=== PATIENT | female | born 1995 | race Caucasian/White ===

== ENCOUNTER 2016-10-02 06:48 | Inpatient (IN) | payer BC ==
--- NOTE | 2016-10-02 07:18 | ED ---
Psychiatric Complaint - HPI Summary HPI Summary: 21 female presents accompanied by police after telling her roommate that she was having thoughts of suicide. Patient states she was driving back to her home , 4 hour away, to kill herself. During this drive she decided to turn around and decided against hurting herself. She does not have homicidal ideations. She has not had suicidal ideations this intense in the past and has never had any prior attempts. She did have a plan to hang her self, as she went and bought a rope. Patient admits to being under a lot of stress but did not want to share her reasons why. Denies abuse or being hurt by another person. Denies alcohol and drug use. She has been talking to a chief substation operator while here at school, ~3 times. But has never been medicated or diagnosed with a psychiatric history. No PMHx. - History Of Current Complaint Chief Complaint: EDMentalHealth Time Seen by Provider: 10/02/16 07:08 Hx Obtained From: Patient Hx Last Menstrual Period: 02/06/16 ?: No Onset/Duration: Gradual Onset, Lasting Weeks, Worse Since Timing: Constant Aggravating Factor(s): Recent Stress Alleviating Factor(s): Counseling Associated Signs And Symptoms: Positive: Appetite Change Has Suicidal: Reports: Thoughts, With A Plan. Denies: Has Prior Attempt(s) Has Homicidal: Denies: Thoughts, With A Plan - Allergies/Home Medications Allergies/Adverse Reactions: Allergies Allergy/AdvReac Type Severity Reaction Status Date / Time Acetaminophen [From Percocet] Allergy Intermediate Vomiting Verified 10/02/16 07 :03 Oxycodone [From Percocet] Allergy Intermediate Vomiting Verified 10/02/16 07:03 PMH/Surg Hx/FS Hx/Imm Hx Endocrine/Hematology History: Denies: Hx Diabetes, Hx Thyroid Disease Cardiovascular History: Denies: Hx Hypertension Respiratory History: Denies: Hx Asthma, Hx Chronic Obstructive Pulmonary Disease (COPD) GI History: Denies: Hx Ulcer Psychiatric History: Denies: Hx Anxiety, Hx Eating Disorder, Hx Depression - Surgical History Surgery Procedure, Year, and Place: none - Immunization History Immunizations Up to Date: Yes Infectious Disease History: Denies: Hx Hepatitis, Hx Human Immunodeficiency Virus (HIV), Traveled Outside the [place] in Last 30 Days - Family History Known Family History: Negative: Hypertension - Social History Alcohol Use: None Substance Use Type: Reports: None Smoking Status (MU): Never Smoked Tobacco Review of Systems Constitutional: Negative Cardiovascular: Negative Positive: Shortness Of Breath Gastrointestinal: Negative Neurological: Negative Positive: Depressed All Other Systems Reviewed And Are Negative: Yes Physical Exam Triage Information Reviewed: Yes Vital Signs On Initial Exam: Initial Vitals Temp Pulse Resp BP Pulse Ox 97.9 F 77 16 128/74 100 10/02/16 07:03 10/02/16 07:03 10/02/16 07:03 10/02/16 07:03 10/02/16 07:03 Vital Signs Reviewed: Yes Appearance: Positive: Well-Appearing - patient is tearful on exam, No Pain Distress, Well-Nourished Skin: Positive: Warm, Skin Color Reflects Adequate Perfusion, Dry Head/Face: Positive: Normal Head/Face Inspection Eyes: Positive: Normal, EOMI, MCKAYLA, Conjunctiva Clear ENT: Positive: Normal ENT inspection, Hearing grossly normal Neck: Positive: Supple, Nontender Respiratory/Lung Sounds: Positive: Clear to Auscultation, Breath Sounds Present Cardiovascular: Positive: Normal, RRR, Pulses are Symmetrical in both Upper and Lower Extremities Abdomen Description: Positive: Nontender, No Organomegaly, Soft Bowel Sounds: Positive: Present Musculoskeletal: Positive: Normal, Strength/ROM Intact Neurological: Positive: Normal, Sensory/Motor Intact, Alert, Oriented to Person Place, Time Psychiatric: Positive: Normal Diagnostics - Vital Signs Vital Signs Temp Pulse Resp BP Pulse Ox 10/02/16 07:03 97.9 F 77 16 128/74 100 - Laboratory Result Diagrams: 10/02/16 07:20 10/02/16 07:20 Lab Statement: Any lab studies that have been ordered have been reviewed, and results considered in the medical decision making process. Course/Dx - Course Course Of Treatment: medical screening labs obtained. patient will be evaluted by mental health. - Differential Dx/Clinical Impression Differential Diagnosis/HQI/PQRI: Positive: Anxiety, Depression, Suicidal Ideation, Suicidal Gesture, Other Provider Diagnosis: Suicidal ideations, Depression, Suicide gesture - Physician Notifications Patient Is Medically Stable For: Psych Evaluation Discharge - Discharge Plan Condition: Stable Disposition: OTHER Discharge Disposition Comment: signed out to Lesia Mariano PA-C at shift change- waiting mental health eval Referrals: No Primary Care Phys,NOPCP [Primary Care Provider] -
[2016-10-02 07:45] LABS: Hematocrit 41 % (35-47); Hemoglobin 13.8 g/dl (12.0-16.0); Mean Corpuscular HGB Conc 34 g/dl (31-36); Mean Corpuscular Hemoglobin 30 pg (27-31); Mean Corpuscular Volume 89 fL (80-97); Mean Platelet Volume 9 um3 (7.4-10.4); Red Cell Distribution Width 13 % (10.5-15); White Blood Count 10.7 10^3/ul (3.5-10.8)
[2016-10-02 07:58] LABS: Urine Bacteria 1+ (Absent); Urine Bilirubin Negative (Negative); Urine Glucose Negative (Negative); Urine Nitrite Negative (Negative)
[2016-10-02 08:01] LABS: ALT 13 U/L (7-52); AST 13 U/L (13-39); Albumin 4.9 g/dL (3.2-5.2); Alkaline Phosphatase 72 U/L (34-104); Anion Gap 9 mmol/L (2-11); BUN/Creatinine Ratio 23.2 (8-20); Blood Urea Nitrogen 23 mg/dL (6-24); CO2 Carbon Dioxide 25 mmol/L (22-32); Calcium 9.7 mg/dL (8.6-10.3); Chloride 105 mmol/L (101-111); EGFR African American 90.2 (>60); EGFR Non-African American 70.1 (>60); Globulin 3.2 g/dL (2-4); Glucose 93 mg/dL (70-100); Potassium 3.7 mmol/L (3.5-5.0); Sodium 139 mmol/L (133-145); Total Protein 8.1 g/dL (6.4-8.9)
[2016-10-02 08:02] LABS: Acetaminophen < 15 mcg/mL; Alcohol < 10 mg/dL (<10); Salicylate < 2.50 mg/dL (<30)
[2016-10-02 08:08] LABS: Benzodiazepine Urine Screen None Detected (None Detect)
[2016-10-02 08:11] LABS: TSH (Thyroid Stimulating Horm) 2.29 mcIU/mL (0.34-5.60)
--- NOTE | 2016-10-04 14:03 | PN ---
MHU: Group Therapy Note - Service Type Service Type: [id number] Group Psychotherapy - Cognitive Behavioral Group Therapy ( CBT):Patient attended CBT programming this morning and presented with flat affect that did not vary with discussion. Although responsive to direct prompts to respond to questions, patient did not engage in spontaneous conversation.
[2016-10-04] MEDS ORDERED: Al Hydrox/Mg Hydrox/Simet LIQ* 30 ML UDC PO PRN (14:25)
--- NOTE | 2016-10-04 14:56 | HP ---
DATE OF ADMISSION: 10/03/2016. DATE OF EVALUATION: 10/04/2016. IDENTIFICATION: Ms. 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 She was brought in by police after telling her roommate that she was feeling suicidal with a plan to hang herself with a rope that she had purchased. She reports a several month's long deepened depressive episode with worsening around about March of last year in the context of persistent milder depressive symptoms over about the past 2 years. HISTORY OF PRESENT ILLNESS: Information was obtained by interview of the patient and review of the electronic medical record, as well as interview of the patient's father. The patient reports that she has been having depressive symptoms, worse since about March of last year at which time she was a missing person to her family and friends, having gone for a drive to [place] for three days without telling anyone. She reports as well having conflicts due to her bisexual orientation and its effects on her Sikhism family and on the family of a young lady that she was in a relationship with about four years ago. She suspects that this bind may have some effect on her current depressive symptomatology. She also reports that her family has a history of depression with the father and the sister both having depressive disorders. 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 Her father reports that she has all her life been a perfectionist and when she encounters any sort of difficulty, she will blame herself for it. He also reports that she has a history of physical concerns, including digestive issues , a problem with her wrist where it was visibly shaking when she was playing her trombone, which she reportedly apprised as some sort of neurological issue. Also she complained of pain in her lips related to playing the trombone. Her father reports also that she has complained of drinking "too much water." This all preceding what the family now refers to as "the drive" that occurred in March. On review of symptoms with her, she reports that her mood is apathetic, numb, and that she does not care what may happen. She feels that she is being "disrespectful" to others due to her inability to interact more normally with them in the face of her mental illness. She is equivocal as to whether she feels she is depressed, but presents with a clear depressed affect. She endorses anhedonia, but only after a pause to consider whether she actually is experiencing difficulties with feeling pleasure. She reports that her sleep is fine, energy is okay, although not as good as it used to be. Appetite has been fluctuating. She reports that she has been bingeing on sugary snacks at times, but has most recently been restricting her food intake as a means of demonstrating to herself that she is capable of self-control. She reports difficulties with concentration and decision making, and that she feels like it is difficult to keep her thoughts coherent. She reports continued passive wish but no active plan to kill herself. She reports as her castillo stressor, when asked specifically about that, "not knowing what lies in the future." She did mention to other staff something about the effect of a prophecy on her thinking, but is embarrassed about it and does not want to talk with me further about it despite my requests. When asked about manic symptoms, she denies any constellation sufficient for a clinical episode of laura. She reports that her anxiety is manageable at about a level of 5/10, worst in social situations. She reports that she wants more than anything to be able to talk with people and would give up any of her other talents in order to be able to do so. She denies ever any history of panic attacks. She denies ever any history of trauma. She reports that she used to have some symptoms of OCD; for example, needing to check three to five that a door was locked in order to know that it was. She denies ever any symptoms of psychosis. MENTAL STATUS EXAMINATION: This is a well-groomed, young lady dressed in green paper scrubs. She has normal rate, rhythm, and volume of speech. She is alert and oriented to person, place, time and situation. There are some latent pauses in her speech. She has a linear and goal-directed thought process on the small scale of answering by questions, but goal-direction on a larger scale appears disrupted by her reported apathy and numbness. She reports her mood as "apathetic" with depressed affect, looking sad with long latencies to speech. She denies any auditory or visual hallucinations or paranoid ideation. She denies any suicidal or homicidal ideation. Her insight and judgment are impaired. Her impulse control is intact. She shows no clear signs of deficits of memory, cognition or attention, though she reports difficulties maintaining coherent thought. PAST PSYCHIATRIC HISTORY: She denies any prior psychiatric hospitalization. She did have some counseling when she was here at [facility] and has seen a counselor about three times, but has lapsed from that over the past six months. She spent three months at home at the end of last semester due to "the drive" and has not been back to see Ludy Blum, the counselor that she had seen here since she returned to school. She does not know of any prior psychiatric diagnoses. She has not tried any medications. She has never attempted suicide. She has been contemplating suicide for what she says are "days, weeks , months." She has not, until this latest episode, gathered the means by which to kill herself. PAST MEDICAL HISTORY: Denies any. Denies any traumatic brain injury, seizures , syncopal episodes, or heart problems. PAST SURGICAL HISTORY: Reports with a wry smile only a bunionectomy. MEDICATIONS AT ADMISSION: None. ALLERGIES: Reported in the EMR as ACETAMINOPHEN AND OXYCODONE FROM PERCOCET, intermediate severity, vomiting. FAMILY PSYCHIATRIC HISTORY: Father reports that he had a severe bout of depression for several months and that he was helped by intensive pastoral counseling at that time. She has a sister as well who has been diagnosed with depression also. Her sister does have a history of a suicidal gesture with an overdose on six Prozac that resulted in a hospitalization for between five and ten days. SUBSTANCE ABUSE HISTORY: She denies any. Denies specifically any use of alcohol, marijuana, cocaine, methamphetamine, heroin, mushrooms, LSD. She denies any abuse of tobacco, [id number] medications, prescription medications, inhalants. SOCIAL HISTORY: She met all her developmental milestones. She did well in school, getting all A's according to her father, which she failed to mention to me. Her parents, she reports, are still happily . She has a one year younger sister. She reports that she is bisexual and that this is a castillo stressor for her and a source of guilt. She reports that her family did not "like it," but was as supportive as they could be when they found out about this. She reports that she had a relationship with a young woman about four years ago that led to intense difficulties for both her and this woman and for both their families. She reports that she was raised as a Baptist and remains a devout Oriental Orthodox, and has difficulties reconciling her sexual orientation with her hindu beliefs. PHYSICAL EXAMINATION Last physical examination was performed in the emergency department and documented across all organ systems, aside from psychiatric, as normal. She has declined a repeat physical examination. She has reported to me that she has no chest pain, shortness of breath, nausea, vomiting, diarrhea, pain or dizziness. She does endorse constipation and declines a laxative. When asked if anything I had not asked about is a problem, she says no. Given a negative review of symptoms for any significantly concerning issues and a recent all normal physical exam report from the ED, I will honor her reasonable request to not be reexamined. VITAL SIGNS: Recorded 7:44 a.m. on 10/04/5016: Temperature 98.8, pulse 63, respiratory rate 16, saturating 100 percent on room air, and blood pressure 110/ 71. LABORATORY VALUES: Unremarkable CBC with differential with only mild excursion of lymphocyte percentage down to 11.1, absolute neutrophil elevated to 8.8 on a white count of 10.7. Comprehensive metabolic panel found a creatinine very mildly elevated to 0.99 with an elevated BUN/creatinine ratio from that and a BUN of 23, total bilirubin 1.4, all other values within normal limits. No test performed: she denies any recent sexual activity and reports her last menstrual period was 2 weeks ago. TSH normal at 2.29. Urinalysis found 1+ leukocyte esterase, 2+ whites, squamous cells present, 1+ bacteria. Toxicology screen negative for all substances in serum and urine. ASSESSMENT AND PLAN: Almita Mcgee is a 21-year-old woman who was brought in by police after she informed her roommate that she had a plan to kill herself by hanging herself. 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 After driving to her parents home, she was going to attempt suicide just prior to being brought in for safety and assessment on report of plan to authorities by her roommate. She reports sufficient symptoms of depression with sufficient duration to be accurately diagnosed with major depressive disorder. She reports castillo stressors as her academic pressures and \\ the bind that she feels between her bisexual orientation and her Sikhism chel. She has for now declined a trial of antidepressant medication against my recommendation. I have explained to her the potential side effects, including but not limited to decreased sex drive and increased thoughts of suicide for those between 18 and 24. We will be encouraging her to continue to make use of therapeutic milieu as she has already begun and has been attending groups and reports that they have been helpful. We will be gathering further collateral from her family and perhaps also from the counselor who saw her three times, Ludy Blum. We will be coordinating aftercare with [facility]. I will be revisiting with her the likely benefits of a trial of an antidepressant medication against her severe depression. DIAGNOSES: Major depressive disorder, single episode, severe, without clear psychotic features (though report of being affected by prophecies raises some concern for psychosis) atop a milder persistent depressive disorder; some report of a history of mostly remitted OCD symptoms with continued perfectionism , but insufficient current symptoms for assigning the diagnosis of OCD now. [id number]/[facility] #: [id number] REINA
[2016-10-04] MEDS: Citalopram TAB* 10 MG PO SCH (16:18)
[2016-10-05] MEDS: Vitamin THERAPEUTIC TAB PO SCH (10:52)
--- NOTE | 2016-10-05 11:09 | PN ---
MHU: Group Therapy Note - Service Type Service Type: [id number] Group Psychotherapy - Cognitive Behavioral Group Therapy ( CBT):Patient attended CBT programming this morning and presented with flat affect that did not vary with discussion. Although responsive to direct prompts to respond to questions, patient did not engage in spontaneous conversation.
[2016-10-05] MEDS: Citalopram TAB* 10 MG PO SCH (11:38)
--- NOTE | 2016-10-05 15:30 | PN ---
Subjective - Subjective Service Type: 24812 Hosp care 25 min moderate complexity Subjective: Almita reports benefiting from groups, reports remission of SI with improved mood. Objective - Appearance Appearance: Healthy Appearing Dysmorphic Features: No Hygiene: Normal Grooming: Well Kept - Behavior Psychomotor Activities: Normal Exhibits Abnormal Movement: No - Attitude and Relatedness Attitude and Relatedness: Well Related Eye Contact: Good - Speech Quality: Unpressured Latencies: Normal Quantity: Appropriate - Mood Patient's Decription of Mood: "Better" - Affect Observed Affect: Fair Affect Consistent with: Euthymia - with moderate anxiety - Thought Process Patient's Thought Process: Coherent, Goal Directed Thought Content: No Passive Wish, No Suicidal Planning, No Homicidal Ideation, No Paranoid Ideation - Sensorium Experiencing Hallucinations: No, Sensorium is Clear Type of Hallucinations: Visual: No, Auditory: No, Command: No - Level of Consciousness Level of Consciousness: Alert Orientation: Yes Intact, Yes Orientated to Time, Yes Orientated to Place, Yes Orientated to Person - Impulse Control Impulse Control: Intact - Insight and Judgement Insight and Judgement: Fair - Group Participation Particating in Group Activities: Yes - Medication Management Medication Management Adherence: Yes Assessment - Assessment Merits Inpatient Hospitalization: For Stabilization, For Ongoing Evaluation, Consolidate Improvements, For Discharge Planning Inpatient DSM-IV Dx: Major depressive disorder, single episode, severe, atop of a potential rule out of persistent depressive disorder; history of OCD symptoms , but not sufficient count/severity to assign that as a current diagnosis. Clinical Impression: 10.04.16, Day 1: Almita Balderas is a 21-year-old woman who was brought in by police after she informed her roommate that she had a plan to kill herself by hanging herself. 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 After driving to her parents home, she was going to attempt suicide just prior to being brought in for safety and assessment on report of plan to authorities by her roommate. She reports sufficient symptoms of depression with sufficient duration to be accurately diagnosed with major depressive disorder. She reports castillo stressors as her academic pressures and \\ the bind that she feels between her bisexual orientation and her Spiritism chel. She has for now declined a trial of antidepressant medication against my recommendation. I have explained to her the potential side effects, including but not limited to decreased sex drive and increased thoughts of suicide for those between 18 and 24. We will be encouraging her to continue to make use of therapeutic milieu as she has already begun and has been attending groups and reports that they have been helpful. We will be gathering further collateral from her family and perhaps also from the counselor who saw her three times, Ludy Blum. We will be coordinating aftercare with [facility]. I will be revisiting with her the likely benefits of a trial of an antidepressant medication against this severe depression. 10.05.16, Day 2: Almita reports early remission of SI, with her last thought of killing herself by hanging just yesterday. She has started Celexa 10 mg, increase today with tolerability established to 20 mg. She reports making good use of the milieu/ programming, feels confident in the skills of staff and comfortable with other patients. Plan - Plan Treatment Plan: Name: ALMITA BALDERAS Birthdate: 1995 [id number] Continue Celexa at 20 mg. Provide supportive psychotherapy. Monitor MS and safety. Coordinate aftercare following resolution of acute safety concerns. Medications: Current Medications Al Hydrox/Mg Hydrox/Simethicone (Maalox Plus*) 30 ml PO Q4H PRN PRN Reason: INDIGESTION Citalopram Hydrobromide (Celexa Tab*) 20 mg PO DAILY DARSHAN Multivitamins (Theragran Tab*) 1 tab PO DAILY DARSHAN Last Admin: 10/05/16 10:52 Dose: Not Given - Discharge Plan Discharge Plan: Outpatient Follow Up
[2016-10-05] MEDS ORDERED: Ibuprofen TAB* 400 MG PO PRN (15:35)
[2016-10-05] MEDS ORDERED: traZODone TAB* 50 MG TAB PO PRN (15:35)
[2016-10-06] MEDS: Citalopram TAB* 20 MG PO SCH (09:51)
[2016-10-06] MEDS: Vitamin THERAPEUTIC TAB PO SCH (09:51)
--- NOTE | 2016-10-06 14:08 | PN ---
MHU: Group Therapy Note - Service Type Service Type: [id number] Group Psychotherapy - Cognitive Behavioral Group Therapy ( CBT):Patient was attentive and participatory in CBT programming this morning, and remained in good behavioral control. Patient expressed positive insights regarding relevant treatment interventions and goals.
--- NOTE | 2016-10-06 14:17 | PN ---
Subjective - Subjective Service Type: 38861 Hosp care 25 min moderate complexity Subjective: Met with Almita and her mother today. Almita reports feeling 'weighed down' today. She denies psychosis or dangerous intent or plan. 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 Her mother asked that we give her adequate lead time notice of intended discharge for her to come up from [place]. Objective - Appearance Appearance: Healthy Appearing Dysmorphic Features: No Hygiene: Normal Grooming: Fairly Well Kept - Behavior Psychomotor Activities: Normal Exhibits Abnormal Movement: No - Attitude and Relatedness Attitude and Relatedness: Cooperative Eye Contact: Good - Speech Quality: Unpressured Latencies: Long Quantity: Terse - Mood Patient's Decription of Mood: "Not as good - weighed down" - Affect Observed Affect: Depressed Affect Consistent with: Dysphoria - Thought Process Patient's Thought Process: Coherent, Goal Directed Thought Content: No Passive Wish, No Suicidal Planning, No Homicidal Ideation, No Paranoid Ideation - Sensorium Experiencing Hallucinations: No, Sensorium is Clear Type of Hallucinations: Visual: No, Auditory: No, Command: No - Level of Consciousness Level of Consciousness: Alert Orientation: Yes Intact, Yes Orientated to Time, Yes Orientated to Place, Yes Orientated to Person - Impulse Control Impulse Control: Intact - Insight and Judgement Insight and Judgement: Poor - Group Participation Particating in Group Activities: Yes - Medication Management Medication Management Adherence: Yes Assessment - Assessment Merits Inpatient Hospitalization: For Immediate Safety, To Initiate Treatment, For Ongoing Evaluation, For Discharge Planning Inpatient DSM-IV Dx: Major depressive disorder, single episode, severe, atop of a potential rule out of persistent depressive disorder; history of OCD symptoms , but not sufficient count/severity to assign that as a current diagnosis. Clinical Impression: 4.24.17, Day 1: Almita Balderas is a 21-year-old woman who was brought in by police after she informed her roommate that she had a plan to kill herself by hanging herself. 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 After driving to her parents home, she was going to attempt suicide just prior to being brought in for safety and assessment on report of plan to authorities by her roommate. She reports sufficient symptoms of depression with sufficient duration to be accurately diagnosed with major depressive disorder. She reports castillo stressors as her academic pressures and \\ the bind that she feels between her bisexual orientation and her Protestant chel. She has for now declined a trial of antidepressant medication against my recommendation. I have explained to her the potential side effects, including but not limited to decreased sex drive and increased thoughts of suicide for those between 18 and 24. We will be encouraging her to continue to make use of therapeutic milieu as she has already begun and has been attending groups and reports that they have been helpful. We will be gathering further collateral from her family and perhaps also from the counselor who saw her three times, Ludy Blum. We will be coordinating aftercare with [facility]. I will be revisiting with her the likely benefits of a trial of an antidepressant medication against this severe depression. 10.05.16, Day 2: Almita reports early remission of SI, with her last thought of killing herself by hanging just yesterday. She has started Celexa 10 mg, increase today with tolerability established to 20 mg. She reports making good use of the milieu/ programming, feels confident in the skills of staff and comfortable with other patients. 10.06.16, Day 3: Today Almita reports feeling 'more weighed down', with onset about 1 hour after doubled (20 mg) dose of Celexa. She agrees with continuing tomorrow on 06/14 a typical starting dose to gather evidence about possible effect of full starting dose of this antidepressant affecting her mood. 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 She agrees with her mother that it would not be craven for her to drive home on her own after discharge. Plan - Plan Treatment Plan: Name: ALMITA BALDERAS Birthdate: 1995 [id number] Reduce Celexa back down to 10 mg. Provide supportive psychotherapy. Monitor MS and safety. Coordinate aftercare following resolution of acute safety concerns. Medications: Current Medications Al Hydrox/Mg Hydrox/Simethicone (Maalox Plus*) 30 ml PO Q4H PRN PRN Reason: INDIGESTION Citalopram Hydrobromide (Celexa Tab*) 20 mg PO DAILY [facility] Last Admin: 10/06/16 09:51 Dose: 20 mg Ibuprofen (Motrin Tab*) 400 mg PO Q6H PRN PRN Reason: PAIN Multivitamins (Theragran Tab*) 1 tab PO DAILY [facility] Last Admin: 10/06/16 09:51 Dose: 1 tab Trazodone HCl (Desyrel Tab*) 50 mg PO BEDTIME PRN PRN Reason: INSOMNIA - Discharge Plan Discharge Plan: Outpatient Follow Up
[2016-10-07] MEDS: Citalopram TAB* 20 MG PO SCH (10:04)
[2016-10-07] MEDS: Vitamin THERAPEUTIC TAB PO SCH (10:04)
--- NOTE | 2016-10-07 11:58 | PN ---
[facility]: Group Therapy Note - Service Type Service Type: 26317 Group Psychotherapy - Cognitive Behavioral Group Therapy ( CBT):Patient was attentive and participatory in CBT programming this morning, and remained in good behavioral control. Patient expressed positive insights regarding relevant treatment interventions and goals.
--- NOTE | 2016-10-07 17:44 | PN ---
Subjective - Subjective Service Type: 37020 Hosp care 25 min moderate complexity Subjective: I met with Almita and her father today, also with her father alone later in the day. Almita continues to present with affect as though the weight of the world is on her. She reports remission of SI. She agrees that conflict between her sexual feelings and her zoroastrian chel are contributing to her depression. She reports her mood is 'more frustrated than anything.' She gave some further information about the prophecies that preceded her depressions in February as coming from the Book of Revelations, though she would not say more about that. Her father reported that he drove here today because she had told him on the phone yesterday she would be discharged today. I did not tell her that, and had spoken in her presence with her mother about giving the family adequate lead time to get here if we were planning to discharge her. Her father reported being afraid for her safety following discharge as he was driving here. He reported that he felt she responded to the concerns he expressed in our noon meeting about the possibility of him coming home and finding her in a way that indicated to him she would be safe at home. Objective - Appearance Appearance: Healthy Appearing Dysmorphic Features: No Hygiene: Normal Grooming: Well Kept - Behavior Psychomotor Activities: Normal Exhibits Abnormal Movement: No - Attitude and Relatedness Attitude and Relatedness: Cooperative Eye Contact: Fair - Speech Quality: Unpressured Latencies: Normal Quantity: Appropriate - Mood Patient's Decription of Mood: 'more frustrated than anything.' - Affect Observed Affect: Depressed Affect Consistent with: Dysphoria - Thought Process Patient's Thought Process: Coherent, Goal Directed Thought Content: No Passive Wish, No Suicidal Planning, No Homicidal Ideation, No Paranoid Ideation - Sensorium Experiencing Hallucinations: No, Sensorium is Clear Type of Hallucinations: Visual: No, Auditory: No, Command: No - Level of Consciousness Level of Consciousness: Alert Orientation: Yes Intact, Yes Orientated to Time, Yes Orientated to Place, Yes Orientated to Person - Impulse Control Impulse Control: Intact - Insight and Judgement Insight and Judgement: Fair - Group Participation Particating in Group Activities: Yes - Medication Management Medication Management Adherence: Yes Assessment - Assessment Merits Inpatient Hospitalization: For Stabilization, For Discharge Planning Inpatient DSM-IV Dx: Major depressive disorder, single episode, severe, atop of a potential rule out of persistent depressive disorder; history of OCD symptoms , but not sufficient count/severity to assign that as a current diagnosis. Clinical Impression: 10.04.16, Day 1: Almita Balderas is a 21-year-old woman who was brought in by police after she informed her roommate that she had a plan to kill herself by hanging herself. 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 After driving to her parents home, she was going to attempt suicide just prior to being brought in for safety and assessment on report of plan to authorities by her roommate. She reports sufficient symptoms of depression with sufficient duration to be accurately diagnosed with major depressive disorder. She reports castillo stressors as her academic pressures and \ the bind that she feels between her bisexual orientation and her Mormon chel. She has for now declined a trial of antidepressant medication against my recommendation. I have explained to her the potential side effects, including but not limited to decreased sex drive and increased thoughts of suicide for those between 18 and 24. We will be encouraging her to continue to make use of therapeutic milieu as she has already begun and has been attending groups and reports that they have been helpful. We will be gathering further collateral from her family and perhaps also from the counselor who saw her three times, Ludy Blum. We will be coordinating aftercare with [facility]. I will be revisiting with her the likely benefits of a trial of an antidepressant medication against this severe depression. 10.05.16, Day 2: Almita reports early remission of SI, with her last thought of killing herself by hanging just yesterday. She has started Celexa 10 mg, increase today with tolerability established to 20 mg. She reports making good use of the milieu/ programming, feels confident in the skills of staff and comfortable with other patients. 10.06.16, Day 3: Today Almita reports feeling 'more weighed down', with onset about 1 hour after doubled (20 mg) dose of Celexa. She agrees with continuing tomorrow on 06/14 a typical starting dose to gather evidence about possible effect of full starting dose of this antidepressant affecting her mood. 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 She agrees with her mother that it would not be craven for her to drive home on her own after discharge. 10.07.16, Day 4: Almita agrees to continue with a typical 20 mg starting dose of Celexa, which was not cut in 1/2 today, but did not again precede feeling 'weighed down'. She reports feeling safe and ready for discharge, though with a frustrated mood and depressed affect. Her parents feel she is ready for discharge tomorrow to come home to [place] with her father. MMPI result is pending. Plan - Plan Treatment Plan: Name: ALMITA BALDERAS Birthdate: 1995 [id number] Continue Celexa at 20 mg. Provide supportive psychotherapy. Monitor MS and safety. Aftercare plan is for JUDITH from school and going home with parents. Medications: Current Medications Al Hydrox/Mg Hydrox/Simethicone (Maalox Plus*) 30 ml PO Q4H PRN PRN Reason: INDIGESTION Citalopram Hydrobromide (Celexa Tab*) 20 mg PO DAILY [facility] Last Admin: 10/07/16 10:04 Dose: 20 mg Ibuprofen (Motrin Tab*) 400 mg PO Q6H PRN PRN Reason: PAIN Multivitamins (Theragran Tab*) 1 tab PO DAILY [facility] Last Admin: 10/07/16 10:04 Dose: 1 tab Trazodone HCl (Desyrel Tab*) 50 mg PO BEDTIME PRN PRN Reason: INSOMNIA - Discharge Plan Discharge Plan: Outpatient Follow Up Outpatient Program: Private Clinician(s)
[2016-10-08] MEDS: Citalopram TAB* 20 MG PO SCH (09:15)
[2016-10-08] MEDS: Vitamin THERAPEUTIC TAB PO SCH (09:15)
[2016-10-08 09:16] VITALS: BP 128/65
--- NOTE | 2016-10-08 13:26 | DS ---
Subjective - Subjective Service Types: 23568 [facility] Day Mgmt complex over 30 min Discharge Date: 10/08/16 Subjective: Almita reports feeling safe and ready for discharge. Se reports that her last suicidal thought was Tuesday. She reports improved mood. She is able to smile and laugh today at my parrot joke, and is generally more upbeat, less looking as though the weight of the world is upon her. Her father also reports that he feels better today about her coming home, and feels she will be safe. He agrees to provide close monitoring at home until she is looking more her usual self. Her mother also reported after speaking with her last night that she felt she would be safe to come home at this time. Dr Marte reported MMPI results to Almita, with scale deviations consistent with depression with psychotic features (prophecies) and perfectionism. Objective - Appearance Appearance: Healthy Appearing Dysmorphic Features: No Hygiene: Normal Grooming: Well Kept - Behavior Psychomotor Activities: Normal Exhibits Abnormal Movement: No - Attitude and Relatedness Attitude and Relatedness: Cooperative Eye Contact: Good - Speech Quality: Unpressured Latencies: Normal Quantity: Terse - Father reports she has always been reticent - Mood Patient's Decription of Mood: "Fine" - "Better than yesterday" - Affect Observed Affect: Fair Affect Consistent with: Euthymia - Thought Process Patient's Thought Process: Coherent, Goal Directed Thought Content: No Passive Wish, No Suicidal Planning, No Homicidal Ideation, No Paranoid Ideation - but still with some concerns about Revelation prophecies - Sensorium Experiencing Hallucinations: No, Sensorium is Clear Type of Hallucinations: Visual: No, Auditory: No, Command: No - Level of Consciousness Level of Consciousness: Alert Orientation: Yes Intact, Yes Orientated to Time, Yes Orientated to Place, Yes Orientated to Person - Impulse Control Impulse Control: Intact - Insight and Judgement Insight and Judgement: Fair - Group Participation Particating in Group Activities: Yes - Medication Management Medication Management Adherence: Yes Treatment Course & Assessment Clinical Course & Impression: 10.04.16, Day 1: Almita Mcgee is a 21-year-old woman who was brought in by police after she informed her roommate that she had a plan to kill herself by hanging herself. 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 After driving to her parents home, she was going to attempt suicide just prior to being brought in for safety and assessment on report of plan to authorities by her roommate. She reports sufficient symptoms of depression with sufficient duration to be accurately diagnosed with major depressive disorder. She reports castillo stressors as her academic pressures and \\ the bind that she feels between her bisexual orientation and her Orthodox chel. She has for now declined a trial of antidepressant medication against my recommendation. I have explained to her the potential side effects, including but not limited to decreased sex drive and increased thoughts of suicide for those between 18 and 24. We will be encouraging her to continue to make use of therapeutic milieu as she has already begun and has been attending groups and reports that they have been helpful. We will be gathering further collateral from her family and perhaps also from the counselor who saw her three times, Ludy Blum. We will be coordinating aftercare with [facility]. I will be revisiting with her the likely benefits of a trial of an antidepressant medication against this severe depression. 4, Day 2: Almita reports early remission of SI, with her last thought of killing herself by hanging just yesterday. She has started Celexa 10 mg, increase today with tolerability established to 20 mg. She reports making good use of the milieu/ programming, feels confident in the skills of staff and comfortable with other patients. 4, Day 3: Today Almita reports feeling 'more weighed down', with onset about 1 hour after doubled (20 mg) dose of Celexa. She agrees with continuing tomorrow on 06/14 a typical starting dose to gather evidence about possible effect of full starting dose of this antidepressant affecting her mood. 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 She agrees with her mother that it would not be craven for her to drive home on her own after discharge. 4, Day 4: Almita agrees to continue with a typical 20 mg starting dose of Celexa, which was not cut in 06/14 today, but did not again precede feeling 'weighed down'. She reports feeling safe and ready for discharge, though with a frustrated mood and depressed affect. Her parents feel she is ready for discharge tomorrow to come home to [place] with her father. MMPI result is pending. 10.08.16, Day 5: Almita is cleared for discharge today. She reports sustained remission of SI with improved mood. She has some lingering concerns about prophecies in Revelation, but refuses to elaborate on this with me. She gives no report or sign of any other potential focus of mild pschoticism found on the MMPI. She agrees to discuss these concerns with her father, a radio time buyer. She has been in good behavioral control throughout this hospitalization. She has been group and med compliant. She is assessed as at no acutely increased risk of harm to self or others, and capable of adequate self-care to avoid harm. Her parents have agreed to a cautious approach of maintaining close observation through the weekend as they monitor for her seeming more her usual self, which they report progress toward during this hospitalization. After care will be with an outpatient psychiatric clinic in the [place], [place] area. She has asked for a 2 month leave of absence from [employer]. Almita is at an elevated risk of suicide due to her depressive illness and past suicidal ideation. She can reduce this risk by holding to her agreed upon safety plan to call her parents for help if she is beginning to feel more depressed or suicidal, and continuing with outpatient care. This chronic risk can not be reduced further to any significant degree by extended acute hospitalization. Merits Inpatient Hospitalization: No Clear for Discharge: Adequate Clinical Respons, Acceptable Safety Profile, Low Utility of Inpt Care Inpatient DSM-IV Dx: Major depressive disorder, single episode, severe, atop of a potential rule out of persistent depressive disorder; history of OCD symptoms , but not sufficient count/severity to assign that as a current diagnosis. - Challis II MR and Personality Disorder: Deferred - Challis III Medical Illness: None - Challis IV Stressors: academics, conflict between [employer]ian chel and sexual orientation Family: Strongly supportive Primary Support Group: Family - Challis V [id number]: 65 Estimate of Highest-Past Year: 75 Discharge Planning - Discharge Planning Discharge Plan: Outpatient Follow Up Outpatient Program: Private Clinician(s) Recommendations for Continuing Care: Medication Management, Psychotherapy Medications: Replace: (Citalopram Hydrobromide (Celexa Tab*) 20 mg PO DAILY [facility] Last Admin: 10/08/16 09:15 Dose: 20 mg) with Lexapro 10 mg po daily. Discharge Planning: Prescriptions provided for discharge [x] Yes : to [facility] [] No Follow up care details as per social work arrangements. Patient response to discharge plan: [x] eager for discharge [x] agreeable with discharge plan [] ambivalent about discharge [] disagrees with discharge today
--- NOTE | 2016-10-08 14:00 | CONS ---
PSYCHOLOGICAL REPORT: DATE OF CONSULTATION: 10/08/16. REASON FOR REFERRAL: Almita was referred for personality testing secondary to concerns about possible psychosis. TEST ADMINISTERED: Almita completed the [place] Multiphasic Personality Inventory-2 (MMP-2), and was given feedback regarding results of individual conversation. Feedback was also given to her father in the context of treatment team meeting with Dr. Mccray and him. 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 She articulated having had a plan to hang herself and had in fact purchased a rope. She reports a significant history of chronic low level depression that appears to have worsened over the course of the past few months. Historically, she reports milder depressive symptoms during the past two years. Interestingly Almita reports having experienced some delusional beliefs regarding prophesies that she had felt were being communicated to her somehow. Historically, she also had a period where she drove to [place] in the context of depression without informing anyone where she would be. 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 She expresses some disappointments about not graduating in a timely way, but has good perspective and positive insights regarding this decision. She has been attentive throughout her stay here in unit programming, having attended cognitive behavioral psychotherapy consistently. She remains quite withdrawn in groups, but responds to direct questioning in a relevant coherent fashion. She is much more forthcoming in an individual context and is able to provide relevant history in a topical fashion. She currently is future oriented, expressing relief for not experiencing any further thoughts of suicide and in having effectively ameliorated depressive symptoms. She is compiled with all efforts to assess and interview as well as taking prescribed medications. She expressed gratitude for the experience here, describing people as being very helpful and empathic. TEST RESULTS: Almita provides somewhat distressed, but valid protocol on this administration of the MMPI-2 having elevated the FB scale to moderate degree (T = 85). She also has mild elevation on the Lie scale (T = 65), but this did not invalidate the test as she has several elevations on clinical indices. Her significant score here appears to fit more directly with perfectionist qualities , given high achievement oriented individuals. Such persons often hold themselves to higher moral and behavioral conduct and expectations than what it is felt to be normal. Almita attained 4.0 grade average and having perfectionist qualities that her father endorses. Clinical scales are significant for what impresses as a major depressive endorsement style, with Almita elevating the depression scale (T = 75) and attaining a very low score on the hypomania scale (T = 38). She elevates the psychopathic deviate to a significant degree, which in this case is thought to be indicative of a person with high independence demands and perhaps might also be in a context of alternative lifestyle preference. She has elevations on the 3 psychoticism scales as well, but these are felt to be of lesser elevations than her depression scale. IMPRESSIONS AND RECOMMENDATIONS: Testing appears to support a major depressive disorder, severe with psychotic features secondary to her expressing delusional beliefs about prophesies. These appeared to have cleared through treatment of depression. As her depressive features have ameliorated she denies continuing to have delusional thoughts or beliefs, and can discuss these in an open fashion without being defensive. Almita impresses as being a good candidate to benefit from ongoing insight oriented and supportive psychotherapies as well as good candidate to continue to comply with recommendations regarding prescribed medicines. She is obviously a very bright and motivated to do well. She expresses great relief at having made the decision to pursue a medical leave and return home with her supportive father in the short term and return to [email or web address] to compete her studies in the fall semester. [id number]/[facility] #: [id number] REINA
== END 2016-10-08 14:00 | disposition home or self-care (01) | DRG 751 ==
LOC: ED 06:48 → BSU 10-03 21:03
PROVIDERS: ADMIT Psychiatry & Neurology Psychiatry; ATTEND Psychiatry & Neurology Psychiatry
DX: F32.2 Major depressive disorder, single episode, severe without psychotic features (principal); R45.851 Suicidal ideations; Z88.6 Allergy status to analgesic agent; Z88.5 Allergy status to narcotic agent; Z81.8 Family history of other mental and behavioral disorders
CPT/HCPCS: 36415; 80053; 80307; 80320; 80329; 81003; 81015; 84443; 84702; 85025; 87086; 90853; 96102; 99222; 99232; 99238; A9270-GY; G0480